=== PATIENT | female | born 1995 | race Hispanic/Latino ===

== ENCOUNTER 2020-01-31 13:40 | Emergency (ER) | payer OTHER ==
[~2020-01-31] VITALS: Ht 162.6 cm; Wt 56.7 kg
--- NOTE | 2020-01-31 13:57 | ER.PDOC ---
General Chief Complaint: Requesting Medical Care Stated Complaint: COUGH,SORE THROAT Time seen by MD: 13:57 Source: patient Exam Limitations: no limitations History of Present Illness Initial Comments two days of nasal congestion and sore throat. Timing/Duration: gradual Severity: mild Associated Symptoms: runny nose, sore throat Allergies: Coded Allergies: No Known Allergies (Unverified , 01/31/20) Constitutional: denies chills, denies fever Respiratory: cough; denies shortness of breath Cardiovascular: denies chest pain Gastrointestinal: denies abdominal pain Genitourinary: denies flank pain Musculoskeletal: denies neck pain Skin: denies rash Psychiatric/Neurological: denies headache Hematologic/Lymphatic: denies anemia Past Medical History Medical History: no pertinent history Surgical History: tonsillectomy Social History Alcohol Use: none Drug Use: none Physical Exam General Appearance: alert, no distress Eye: eyes nml inspection Throat: pharyngeal erythema Neck: lymphadenopathy Abdomen: non-tender CVS: reg rate & rhythm Skin: color nml, no rash Extremities: non-tender, nml ROM NEURO/PSYCH: oriented x 3, CN's nml as tested Comments no meningismus Results/Orders Results/Orders Orders - NAYAN VENTURA MD Influenza A&B (01/31/20 13:57) Strep Screen (01/31/20 13:57) Novel Coronavirus 2019([facility]) (01/31/20 13:57) Vital Signs Date Time Temp Pulse Resp B/P (MAP) Pulse Ox O2 Delivery O2 Flow Rate FiO2 01/31/20 14:02 97.9 75 18 115/62 (79) 97 Room Air 01/31/20 14:02 97.9 75 18 01/31/20 13:59 97.9 75 18 Laboratory Tests Test 01/31/20 13:57 Influenza Type A Antigen NEGATIVE (NEG) Influenza B Immunofluorescence NEGATIVE (NEG) Group A Streptococcus Screen POSITIVE (NEGATIVE) ER DEPART Departure Time of Disposition: 14:33 Disposition: 01 HOME, SELF-CARE Impression: Primary Impression: Strep throat Condition: Stable Patient Instructions: Strep Throat Referrals: PCP,UNKNOWN (PCP) PRIMARY CARE PROVIDER PRASHANT JURADO MD Additional Instructions: return for any worsening symptoms, self quarantine as your covid testing is pending Duration or Time Spent with Pa: NAYAN SANDS MD Jan 31, 2020 13:57
[2020-01-31 13:59] VITALS: BP 115/62
[2020-01-31 14:02] VITALS: BP 115/62
--- NOTE | 2020-01-31 14:03 | NUR ---
ARRIVAL PATIENT ARRIVED TO [facility], C/O OF HEADACHE,COUGH,FEVER AND FATIGUE FOR THE PAST SEVERAL DAYS, DOES HAVE A HISTORY OF BEING EXPOSED TO COVID-19, FAMILY MEMBER DX WITH FLU, CAME TO THE ED FOR EVAL.
[2020-01-31 14:47] VITALS: BP 115/62
== END 2020-01-31 14:50 | disposition home or self-care (01) ==
LOC: ER 13:40
DX: U07.1 COVID-19 (principal)
CPT/HCPCS: 87635; 87804; 87880; 99283

== ENCOUNTER 2020-09-23 11:17 | Emergency (ER) | payer OTHER ==
[2020-09-23 11:19] VITALS: BP 113/63
--- NOTE | 2020-09-23 11:36 | NUR ---
US CALLED [facility] FOR US.
--- NOTE | 2020-09-23 11:40 | ER.PDOC ---
General Chief Complaint: less 20 wks Stated Complaint: UNDER 20 WKS Time seen by MD: 11:37 Source: patient Exam Limitations: no limitations History of Present Illness Initial Comments Mild lower abdominal cramps this morning. She also does not feel nauseated this morning which is her symptom. She is worried because she is feeling the way she felt when she miscarried in her previous . No vaginal bleeding. Timing/Duration: this morning Severity/Quality: mild, cramping Location of Pain: abdominal pain LMP (females 10-50): : 3 Para: 1 Test: clinic Associated Symptoms: abdominal pain (mild cramping) Allergies: Coded Allergies: No Known Allergies (Unverified , 01/31/20) Past Medical History Medical History: no pertinent history Surgical History: no surgical history Social History Smoking: non-smoker Alcohol Use: none Drug Use: none Review of Systems Constitutional: no symptoms reported EENTM: no symptoms reported Respiratory: no symptoms reported Cardiovascular: no symptoms reported Gastrointestinal: see HPI All Other Systems: Reviewed and Negative Physical Exam General Appearance: No Apparent Distress, WD/WN Neck: nml inspection, non-tender Cardiovascular/Respiratory: Regular Rate, Rhythm, No M/R/G, Normal Peripheral Pulses, No JVD, Normal Breath Sounds, No Respiratory Distress Abdomen: Normal Bowel Sounds, Non Tender, Soft, No Organomegaly, No Pulsatile Mass Back: nml inspection Extremities: Normal Range of Motion, Non-Tender, Normal Inspection, No Pedal Edema, No Calf Tenderness, Normal Capillary Refill Neurologic/Psychiatric: permit coordinator II-XII NML as Tested, No Motor/Sensory Deficits, Alert, Normal Mood/Affect, Oriented x 3 Skin: Normal Color, Warm/Dry Lymphatic: No Adenopathy Results/Orders Results/Orders Orders - FLORIDALMA WISE MD Cbc With Auto Diff (09/23/20 11:35) Comprehensive Metabolic Panel (09/23/20 11:35) Us Tv-Ob (09/23/20 11:35) Urinalysis (09/23/20 11:35) Hcg, Quantitative (09/23/20 11:35) Us Preg Before 14 Wks (09/23/20 12:01) Vital Signs Date Time Temp Pulse Resp B/P (MAP) Pulse Ox O2 Delivery O2 Flow Rate FiO2 09/23/20 12:49 55 143/61 (88) 100 09/23/20 11:19 98.7 59 16 99 09/23/20 11:19 98.7 59 18 113/63 (80) 99 Room Air 09/23/20 11:19 98.7 59 18 Laboratory Tests Test 09/23/20 11:40 White Blood Count 7.1 10^3/uL (4.5-11.0) Red Blood Count 4.50 10^6/uL (4.00-5.20) Hemoglobin 12.9 g/dL (12.0-15.0) Hematocrit 39.8 % (36.0-46.0) Mean Corpuscular Volume 88.4 fL (78-100) Mean Corpuscular Hemoglobin 28.7 pg (26-34) Mean Corpuscular Hemoglobin Concent 32.4 g/dL (33-36.5) L Red Cell Distribution Width 13.1 % (11.5-14.5) Platelet Count 224 10^3/uL (150-400) Mean Platelet Volume 10.2 fL (7.8-11.0) Neutrophils (%) (Auto) 67.1 % (41.0-85.0) Lymphocytes (%) (Auto) 23.5 % (24.0-44.0) L Monocytes (%) (Auto) 7.6 % (5.0-12.0) Neutrophils # (Auto) 4.8 10^3/uL (1.8-7.7) Lymphocytes # (Auto) 1.67 10^3/uL1 (1.0-4.8) Monocytes # (Auto) 0.5 10^3/uL (0.3-0.8) Absolute Immature Granulocyte (auto 0.01 10^3 u/L (0-2) Absolute Eosinophils (auto) 0.1 10^3/uL (0.0-0.2) Immature Granulocytes % 0.10 % (0.00-0.50) Eosinophils % 1.4 % (0.0-5.0) Basophils % 0.3 % (0.0-0.2) H Basophils # 0.0 10^3/uL (0.0-0.1) Urine Collection Type UNKNOWN Urine Color YELLOW Urine Appearance CLOUDY Urine Bilirubin NEGATIVE (NEGATIVE) Urine Ketones NEGATIVE (NEGATIVE) Urine Specific [place] 1.025 (1.005-1.030) Urine pH 8.5 (4.5-8.0) Urine Protein NEGATIVE (NEGATIVE) Urine Urobilinogen 0.2 E.U./dL (0.2) Urine Nitrate NEGATIVE (NEGATIVE) Urine Leukocyte Esterase NEGATIVE (NEGATIVE) Urine Glucose (Auto)(UA) NEGATIVE (NEGATIVE) Urine Blood NEGATIVE (NEGATIVE) Urine RBC NONE SEEN RBC/HPF (NONE Urine WBC NONE SEEN WBC/HPF (0-2) Urine Squamous Epithelial Cells MODERATE #/HPF (FEW) Urine Amorphous Sediment MODERATE (NONE SEEN) Urine Bacteria NONE SEEN (NONE SEEN) Sodium Level 139 mmol/L (132-145) Potassium Level 3.8 mmol/L (3.6-5.2) Chloride Level 105.0 mmol/L (96-109) Carbon Dioxide Level 23.9 mmol/L (20.0-32) Anion Gap 13.9 Blood Urea Nitrogen 9 mg/dL (7-18) Creatinine 0.74 mg/dL (0.59-1.40) Estimated GFR () 115.7 (>/=60) Est GFR (CKD-EPI)(Non-Afr Tunisian) 95.6 (>/=60) BUN/Creatinine Ratio 12.0 Glucose Level 94 mg/dL (70-110) Calcium Level 8.7 mg/dL (8.4-10.5) Total Bilirubin 0.2 mg/dL (0.2-1.0) Aspartate Amino Transferase (AST) 19 U/L (0-35) Alanine Aminotransferase (ALT) 44 U/L (12-78) Alkaline Phosphatase 74 U/L (50-136) Total Protein 7.2 g/dL (6.4-8.2) Albumin 3.3 g/dL (3.4-5.0) L Globulin 3.9 Albumin/Globulin Ratio 0.846 Human Chorionic Gonadotropin, Quant [id number] mIU/mL Progress Progress CBC, chemistries and urinalysis all normal. Ultrasound shows normal 8 weeks and 2 days. Discussed findings with the patient who voiced understanding. EKG/XRAY/CT/US Ultrasound: normal (intrauterine of 8 weeks and 2 days) ER DEPART Departure Time of Disposition: 12:53 Disposition: 01 HOME / SELF CARE / HOMELESS Impression: Primary Impression: Abdominal pain during in first trimester Condition: Stable Referrals: PCP,UNKNOWN (PCP) PRIMARY CARE PROVIDER Additional Instructions: Follow-up with your OB doctor in 2 to 3 days Return to ED if worsening or concerns Duration or Time Spent with Pa: 60 min FLORIDALMA WISE MD September 23, 2020 11:40
[2020-09-23 11:45] LABS: BASOPHIL % 0.3 % (0.0-0.2); EOSINOPHIL # 0.1 10^3/uL (0.0-0.2); EOSINOPHIL % 1.4 % (0.0-5.0); LYMPHOCYTES # 1.67 10^3/uL1 (1.0-4.8); LYMPHOCYTES % 23.5 % (24.0-44.0); MEAN CORP HGB 28.7 pg (26-34); MONOCYTES # 0.5 10^3/uL (0.3-0.8); MONOCYTES % 7.6 % (5.0-12.0); NEUTROPHIL # 4.8 10^3/uL (1.8-7.7); NEUTROPHILS % 67.1 % (41.0-85.0); PLATELET COUNT 224 10^3/uL (150-400); RED CELL DISTRIBUTION WIDTH 13.1 % (11.5-14.5)
[2020-09-23 11:56] LABS: BILIRUBIN,URINE NEGATIVE (NEGATIVE); UA COLOR YELLOW; UROBILINOGEN,URINE 0.2 E.U./dL (0.2)
[2020-09-23 12:23] LABS: CALCIUM 8.7 mg/dL (8.4-10.5); CARBON DIOXIDE 23.9 mmol/L (20.0-32)
--- NOTE | 2020-09-23 12:38 | NUR ---
STATUS PT BACK IN ROOM AFTER US.
[2020-09-23 12:49] VITALS: BP 143/61
--- NOTE | 2020-09-23 12:51 | DIREP ---
PROCEDURE:US OB 1ST TRI - TV COMPARISON:None. INDICATIONS:LOWER ABD CRAMPS X2D, NAUSEA TECHNIQUE:Transabdominal and endovaginal pelvic ultrasound images were obtained. Endovaginal images were obtained to optimally evaluate the and maternal adnexal structures. FINDINGS: GESTATIONAL SAC:Present and normal appearing. PLACENTA:Survey of the placental anatomic structure and amniotic fluid could not be performed because of gestational age (<14 weeks). POLE:Present and normal appearing. CRL- 1.80 cm YOLK SAC:Present. CARDIAC ACTIVITY:159 bpm. UTERUS:Normal. OVARIES:Normal. CUL-DE-SAC:No free fluid. CLINICAL AGE:7 weeks 6 days, SUMMER 05/06/2021 US AGE:8 weeks 2 days OTHER:Negative. CONCLUSION: 1. Single early viable IUP 8 weeks 2 days and SUMMER 05/06/2021. 2. No abnormality seen. 3. Concordant LMP and ultrasound gestational ages. Dictated by: Bhavna Smith MD on 09/23/2020 at 12:47 PM
== END 2020-09-23 12:55 ==
LOC: ER 11:17
DX: O26.891 Other specified pregnancy related conditions, first trimester (principal); R10.2 Pelvic and perineal pain; Z3A.01 Less than 8 weeks gestation of pregnancy
CPT/HCPCS: 36415; 76801; 76817; 80053; 81003; 84702; 85025; 99284